=== PATIENT | male | born 1990 | race Two or more races ===

== ENCOUNTER 2025-07-15 14:02 | Emergency (ER) | payer MEDICAID ==
[~2025-07-15] VITALS: Ht 177.8 cm; Wt 77.0 kg
[2025-07-15 14:07] VITALS: O2SAT 97
[2025-07-15] MEDS ORDERED: SERT25TA74 MT (14:13)
[2025-07-15] MEDS ORDERED: NALO4SPR BOTHNSTRLS (14:13)
[2025-07-15] MEDS ORDERED: IBUP-1455 MT (17:58)
[2025-07-15 18:22] VITALS: BP 120/76; PULSE 77; RESP 18; TEMP 36.9; O2SAT 97
== END 2025-07-15 18:24 | disposition home or self-care (01) ==
LOC: ER 14:24
DX: G62.9 Polyneuropathy, unspecified (principal); F11.90 Opioid use, unspecified, uncomplicated; R20.2 Paresthesia of skin
CPT/HCPCS: 29125; 99283